=== PATIENT | male | born 1965 | race African-American/Black ===

== ENCOUNTER 2020-04-23 10:50 | Emergency (ER) | payer MEDICARE ==
[~2020-04-23] VITALS: Ht 162.6 cm; Wt 76.0 kg
[2020-04-23 12:00] VITALS: BP 126/78
[2020-04-23 12:04] LABS: CLARITY URINE CLOUDY (CLEAR); COLOR URINE DARK YELLOW (YELLOW); KETONES URINE NEGATIVE (NEGATIVE); LEUKOCYTE ESTERASE URINE 1+ (NEGATIVE); NITRITE URINE NEGATIVE (NEGATIVE); OCCULT BLOOD URINE 3+ (NEGATIVE); PH URINE 5.5 (4.5-8.0); PROTEIN URINE 2+ (NEGATIVE); SPECIFIC GRAVITY URINE 1.026 (1.005-1.030)
== END 2020-04-23 13:23 | disposition home or self-care (01) ==
LOC: ER 10:50
DX: N39.0 Urinary tract infection, site not specified (principal); E78.00 Pure hypercholesterolemia, unspecified; Z95.1 Presence of aortocoronary bypass graft
CPT/HCPCS: 81003; 87077; 87186; 99283